=== PATIENT | female | born 1990 | race Caucasian/White ===

== ENCOUNTER 2017-06-16 17:22 | Inpatient (IN) | payer OTHER ==
[~2017-06-16] VITALS: Ht 162 cm; Wt 98.4 kg
[2017-06-17] MEDS ORDERED: OXYTOCIN 30 UNITS/LACT RINGERS 500 ML IV ONE (00:03)
[2017-06-17] MEDS ORDERED: RINGERS SOLUTION,LACTATED 1,000 ML IV PRN (00:03)
[2017-06-17 00:08] VITALS: BP 117/73
[2017-06-17] MEDS ORDERED: LIDOCAINE HCL/PF 1% 30 ML VIAL INJ PRN (00:15)
[2017-06-17] MEDS ORDERED: CITRIC ACID/SODIUM CITRATE 30 ML SOLUTION UDCUP PO PRN (00:15)
[2017-06-17] MEDS ORDERED: METOCLOPRAMIDE HCL 5 MG/ML 2 ML VIAL IVP PRN (00:15)
[2017-06-17 00:51] LABS: BASOPHILS % (AUTO) 0.6 % (0.0-2.0); EOSINOPHILS % (AUTO) 0.6 % (1.0-6.0); HEMATOCRIT 31.7 % (36-46); HEMOGLOBIN 10.6 g/dL (12.0-16.0); LYMPHOCYTES # (AUTO) 2.1 K/uL (1.0-4.8); MEAN CORPUSCULAR HEMOGLOBIN 29.2 pg (26.0-34.0); MEAN CORPUSCULAR HGB CONC 33.3 G/dL (31.0-37.0); MEAN CORPUSCULAR VOLUME 87 fL (80-100); MONOCYTES % (AUTO) 6.8 % (2.0-9.0); NEUTROPHILS # (AUTO) 11.6 K/uL (1.8-7.7); RED BLOOD CELL COUNT(AUTO) 3.62 MIL/uL (4.00-5.20); RED CELL DISTRIBUTION WIDTH 14.3 % (11.5-14.5); WHITE BLOOD COUNT (AUTO) 14.8 K/uL (4.5-11.0)
[2017-06-17] MEDS: FentaNYL CITRATE-PF 100 MCG/2 ML VIAL IVP PRN ×4 (03:05→04:10)
[2017-06-17] MEDS: RINGERS SOLUTION,LACTATED 1,000 ML IV SCH ×3 (04:32→06:21)
[2017-06-17] MEDS ORDERED: BUPIVACAINE HCL/PF 0.25% 30 ML VIAL ONE (04:35)
[2017-06-17] MEDS ORDERED: BUPIVACAINE HCL 0.125%/NS/PF 100 ML ED ONE (04:36)
[2017-06-17] MEDS ORDERED: BUPIVACAINE HCL 0.125%/NS/PF 100 ML ED PRN (05:22)
[2017-06-17] MEDS ORDERED: ONDANSETRON HCL 4 MG/2 ML VIAL IVP PRN (05:30)
[2017-06-17] MEDS ORDERED: DiphenhydrAMINE HCL 50 MG/ML VIAL IVP PRN (05:30)
[2017-06-17] MEDS ORDERED: CefTRIAXone 1 GM/DEXTROSE 50 ML IV ONE (06:00)
[2017-06-17] MEDS ORDERED: OXYGEN THERAPY IH SCH (08:00)
[2017-06-17] MEDS ORDERED: GENTAMICIN 100 MG/NACL ISO-OSM 50 ML IV ONE (11:45)
[2017-06-17] MEDS ORDERED: LANOLIN 7 GM OINTMENT TP PRN (11:45)
[2017-06-17] MEDS ORDERED: BENZOCAINE 20%/MENTHOL 56 GM SPRAY CANISTER TP PRN (11:45)
[2017-06-17] MEDS ORDERED: GLYCERIN/WITCH HAZEL LEAF 40 PADS JAR TP PRN (11:45)
[2017-06-17] MEDS ORDERED: ACETAMINOPHEN/CODEINE 300-30 MG TABLET PO PRN ×2 (11:45)
[2017-06-17] MEDS: IBUPROFEN 600 MG TABLET PO PRN ×2 (15:30→20:58)
[2017-06-17] MEDS: MAGNESIUM HYDROXIDE SUSPENSION 30 ML UDCUP PO SCH (20:56)
[2017-06-17] MEDS: SENNA/DOCUSATE SODIUM 187-50 MG TABLET PO SCH (20:57)
[2017-06-17] MEDS: SULFAMETHOX/TRIMETH DS 800-160 MG/TABLET PO SCH (20:58)
[2017-06-18] MEDS: IBUPROFEN 600 MG TABLET PO PRN (06:30)
[2017-06-18] MEDS: SULFAMETHOX/TRIMETH DS 800-160 MG/TABLET PO SCH (09:43)
[2017-06-18] MEDS: MAGNESIUM HYDROXIDE SUSPENSION 30 ML UDCUP PO SCH (09:44)
[2017-06-18] MEDS: SENNA/DOCUSATE SODIUM 187-50 MG TABLET PO SCH (09:44)
[2017-06-18 11:05] VITALS: BP 119/58
[2017-06-18] MEDS ORDERED: IBUP-2071 PO (11:24)
== END 2017-06-18 13:15 | disposition home or self-care (01) | DRG 774 ==
LOC: OBSVTOIN 17:22 → EDBD 17:22 → 4S 17:22
PROVIDERS: ADMIT Obstetrics & Gynecology; ATTEND Obstetrics & Gynecology
PROC: 10E0XZZ Delivery of Products of Conception, External Approach (ICD-10-PCS; principal; 2017-06-17)
PROC: 0KQM0ZZ Repair Perineum Muscle, Open Approach (ICD-10-PCS; 2017-06-17)
PROC: 0U9MXZZ Drainage of Vulva, External Approach (ICD-10-PCS; 2017-06-17)
PROC: 00HU33Z Insertion of Infusion Device into Spinal Canal, Percutaneous Approach (ICD-10-PCS; 2017-06-17)
DX: O75.3 Other infection during labor (principal); L02.214 Cutaneous abscess of groin; O76 Abnormality in fetal heart rate and rhythm complicating labor and delivery; O70.1 Second degree perineal laceration during delivery; N90.7 Vulvar cyst; O75.89 Other specified complications of labor and delivery; Z37.0 Single live birth; Z3A.38 38 weeks gestation of pregnancy; Z67.21 Type B blood, Rh negative; Z79.899 Other long term (current) drug therapy
CPT/HCPCS: 76811; 85461; 86850; 86900; 86901; 87070; 87205; 87210; 89060; J0696; J1580; J2590; J3010; J3490; J7120